=== PATIENT | male | born 1970 | race Caucasian/White ===

== ENCOUNTER 2019-08-24 08:08 | Outpatient (CLI) | payer BC, SELFPAY ==
--- NOTE | ~2019-08-24 | US_ITS ---
US abdomen complete EXAMINATION: US Abdomen Complete INDICATION: Abdominal pain for PROCEDURE: Realtime High Resolution abdomen ultrasound. COMPARISON: No prior studies for comparison FINDINGS: Gallbladder within normal limits. No gallstones, pericholecystic fluid, gallbladder wall t hickening or biliary dilatation. Common bile duct measures mm. Liver echotexture is increased echotexture, consistent with fatty infiltration.. Pancreas within nor mal limits. Pancreatic tail is obscured by bowel gas. Spleen is enlarged measuring 15.5 cm. Renal e chotexture is within normal limits bilaterally without hydronephrosis, contour deforming mass or domenic l stone. Right kidney measures 11.2 cm. Left kidney measures 10.7 cm. Visualized aspects of the aorta and IVC are within normal limits. Portal vein is patent. No sonograph ic Brizuela's sign indicated by the technologist. IMPRESSION: 1: Splenomegaly. 2: Hepatic steatosis. Reviewed, dictated and finalized at location B.
== END 2019-08-24 08:09 | disposition home or self-care (01) ==
LOC: ANHIMG 08:18
PROVIDERS: PCP Physician Assistant; Visit Provider Physician Assistant
DX: R10.9 Unspecified abdominal pain (principal); R16.1 Splenomegaly, not elsewhere classified; K76.0 Fatty (change of) liver, not elsewhere classified
CPT/HCPCS: 76700